=== PATIENT | male | born 1980 | race Caucasian/White ===

== ENCOUNTER 2022-09-01 00:27 | Emergency (ER) | payer SELFPAY ==
[~2022-09-01] VITALS: Ht 177.8 cm; Wt 85.0 kg
[2022-09-01] MEDS ORDERED: SODIUM CHLORIDE 0.9% 1,000 ML IV ONE (01:00)
[2022-09-01] MEDS ORDERED: LORAZEPAM 2MG/ML CPJ IV ONE ×3 (01:00→04:00)
[2022-09-01] MEDS ORDERED: LORAZEPAM 2MG/ML CPJ IM ONE ×2 (01:00→03:45)
[2022-09-01 01:36] LABS: HEMATOCRIT. 39.6 % (42.0-52.0); HEMOGLOBIN. 14.1 g/dL (14.0-18.0); MEAN CORPUSCULAR HEMOGLOBIN 32.9 pg (28.0-32.0); MEAN CORPUSCULAR VOLUME 92.1 fL (80.0-94.0); MEAN PLATELET VOLUME 8.3 fl (7.4-10.4); PLATELET 172 x1000/uL (130-400); RED CELL DISTRIBUTION WIDTH 12.1 % (11.6-14.6)
[2022-09-01 01:44] LABS: CHLORIDE 102 mEq/L (98-107)
[2022-09-01 01:48] LABS: *AMPHETAMINES SCREEN URINE PRESUMTIVE POSITIVE (NEGATIVE); *BARBITURATES SCREEN URINE NEGATIVE (NEGATIVE); *BENZODIAZEPINES SCREEN URINE NEGATIVE (NEGATIVE); *COCAINE SCREEN URINE NEGATIVE (NEGATIVE); CANNABINOID URINE SCREEN NEGATIVE (NEGATIVE); METHADONE URINE SCREEN NEGATIVE (NEGATIVE); OPIATES URINE SCREEN NEGATIVE (NEGATIVE); PHENCYCLIDINE URINE SCREEN NEGATIVE (NEGATIVE)
[2022-09-01 01:53] LABS: ETHANOL BLOOD < 10 mg/dL (-10)
[2022-09-01 02:11] LABS: PLATELET ESTIMATE NORMAL
[2022-09-01] MEDS ORDERED: LORAZEPAM 2MG/ML CPJ IM STA (02:20)
[2022-09-01] MEDS ORDERED: DIPHENHYDRAMINE 50MG/ML VIAL IM ONE (04:45)
[2022-09-01] MEDS ORDERED: OLANZAPINE 10 MG/VIAL IM ONE (04:45)
[2022-09-01 05:20] VITALS: TEMP 98.6
[2022-09-01 05:30] VITALS: O2SAT 95
[2022-09-01 06:46] VITALS: BP 114/71; PULSE 102; RESP 20
== END 2022-09-01 10:14 | disposition home or self-care (01) ==
LOC: ER 00:27
DX: R45.1 Restlessness and agitation (principal); R00.0 Tachycardia, unspecified; F15.129 Other stimulant abuse with intoxication, unspecified; Z20.822 Contact with and (suspected) exposure to COVID-19
CPT/HCPCS: 80053; 80305; 80307; 80329; 80320; 85025; 84484; 36415; 93005; 96361; 96374; 96376; 99285; 87426; J3490; J1200; J2060; J7030; C9803; Z7610 ×4; G0480